=== PATIENT | male | born 1975 ===

== ENCOUNTER 2018-05-10 18:18 | Emergency (ER) | payer BC ==
[2018-05-10 18:18] VITALS: BMI 24.7
[2018-05-10 18:23] VITALS: BP 122/78; PULSE 83; TEMP 97.9; O2SAT 97
--- NOTE | 2018-05-10 18:42 | C.PDOC ---
History Of Present Illness 42 y/o male presents to ED with c/o left ear pain and difficulty hearing for 2 days. Patient states when he touches his ear, pain goes away and denies fever, headache, ear discharge or throat pain. Time Seen by Provider: 05/10/18 18:33 Chief Complaint (Nursing): ENT Problem History Per: Patient History/Exam Limitations: None Onset/Duration Of Symptoms: Days Current Symptoms Are (Timing): Still Present Past Medical History Reviewed: Historical Data, Nursing Documentation, Vital Signs Vital Signs: Last Vital Signs Temp 97.9 F 05/10/18 18:20 Pulse 83 05/10/18 18:20 Resp 20 05/10/18 19:19 BP 122/78 05/10/18 18:20 Pulse Ox 97 05/10/18 19:14 - Medical History PMH: Asthma Surgical History: No Surg Hx Family History: States: No Known Family Hx - Social History Hx Tobacco Use: No Hx Alcohol Use: No Hx Substance Use: No - Immunization History Hx Tetanus Toxoid Vaccination: No Hx Influenza Vaccination: No Hx Pneumococcal Vaccination: No Review Of Systems Constitutional: Negative for: Fever, Chills ENT: Positive for: Ear Pain. Negative for: Ear Discharge Respiratory: Negative for: Cough Skin: Negative for: Rash Physical Exam - Physical Exam Appears: Non-toxic, No Acute Distress Skin: Warm, Dry, No Rash Head: Atraumatic, Normacephalic Eye(s): bilateral: Normal Inspection Ear(s): Left: TM Obscured By Wax, Right: Normal Oral Mucosa: Moist Throat: Normal, No Erythema, No Exudate Neck: Supple Extremity: Bilateral: Atraumatic, Normal Color And Temperature Neurological/Psych: Oriented x3, Normal Speech Gait: Steady ED Course And Treatment O2 Sat by Pulse Oximetry: 97 (RA) Pulse Ox Interpretation: Normal Medical Decision Making Medical Decision Making: Impression: cerumen impaction Plan: Ear lavage Progress: Patient tolerated well. Instructed to follow up with ENT Disposition Counseled Patient/Family Regarding: Diagnosis, Need For Followup - Disposition Referrals: Evgeny Pereira MD [Staff Provider] - Disposition: HOME/ ROUTINE Disposition Time: 19:07 Condition: STABLE Additional Instructions: apply ear drops to affected ear follow up with ENT Prescriptions: Carbamide Peroxide [Debrox] 15 ml AD BID #1 bottle Instructions: Ear Wax Impaction (DC) Forms: [employer] (Nepali) - POA Present On Arrival: None - Clinical Impression Clinical Impression: Cerumen impaction - PA / PUTTY PATCHER / Resident Statement MD/DO has reviewed & agrees with the documentation as recorded. - Scribe Statement The provider has reviewed the documentation as recorded by the Scribe Tahira Sherwood All medical record entries made by the Scribe were at my direction and personally dictated by me. I have reviewed the chart and agree that the record accurately reflects my personal performance of the history, physical exam, medical decision making, and the department course for this patient. I have also personally directed, reviewed, and agree with the discharge instructions and disposition. Procedures - Ear Wax Removal Left Ear Cerumenolytic Used: 5-10 % Sodium Bicarb solution Result: Re-examined: cerumen removed completely TM Examination: TM(s) intact, normal appearance Ear Canal Exam: atraumatic Patient Tolerated Procedure: well Complications: no problems Technique: ear canal irrigated
[2018-05-10 19:20] VITALS: RESP 20
== END 2018-05-10 19:19 | disposition home or self-care (01) ==
LOC: C.ER 18:18
DX: H61.22 Impacted cerumen, left ear (principal)

== ENCOUNTER 2018-12-20 09:08 | Emergency (ER) | payer BC ==
[2018-12-20 09:18] VITALS: BMI 23.1
[2018-12-20 09:20] VITALS: BP 119/76; PULSE 99; RESP 20; TEMP 99.6; O2SAT 96
--- NOTE | 2018-12-20 09:48 | C.PDOC ---
History Of Present Illness 43 year old male with h/o asthma presents to ED with mother for 2-3 days of wheezing and nonproductive cough. Patient uses nebulizer and had a subjective fever yesterday. Patient also complains of "itchy" chest discomfort only when coughing. Patient has no history of intubation and no recent steroid/hospitalizations. Patient denies chills, nausea, and vomiting. 2-3 d wheezing, non prod cough used neb tactile temp yest "itchy" chest discomfort only when coughing no chills, no n/v no h/o intubation, no recent steroid/hospitalizations no other c/o Chief Complaint (Nursing): Cough, Cold, Congestion History Per: Patient History/Exam Limitations: no limitations Onset/Duration Of Symptoms: Days (2-3) Current Symptoms Are (Timing): Still Present Location Of Pain: Other (chest) Associated Symptoms: Fever, Cough, Other. denies: Chills, Sputum, Nausea, Vomiting Past Medical History Reviewed: Historical Data, Nursing Documentation, Vital Signs Vital Signs: Last Vital Signs Temp 99.6 F 12/20/18 09:18 Pulse 99 H 12/20/18 09:18 Resp 20 12/20/18 09:18 BP 119/76 12/20/18 09:18 Pulse Ox 96 12/20/18 09:18 - Medical History PMH: Asthma Surgical History: No Surg Hx Family History: States: Unknown Family Hx - Social History Hx Tobacco Use: No Hx Alcohol Use: No Hx Substance Use: No - Immunization History Hx Tetanus Toxoid Vaccination: No Hx Influenza Vaccination: No Hx Pneumococcal Vaccination: No Review Of Systems Constitutional: Positive for: Fever. Negative for: Chills, Weakness Cardiovascular: Positive for: Chest Pain (itchy chest discomfort) Respiratory: Positive for: Cough, Wheezing. Negative for: Sputum Gastrointestinal: Negative for: Nausea, Vomiting Neurological: Negative for: Weakness, Numbness, Dizziness Physical Exam - Physical Exam Appears: Well, Non-toxic, No Acute Distress Skin: Normal Color, Warm, Dry Head: Atraumatic, Normacephalic Eye(s): bilateral: Normal Inspection, PERRL, EOMI Nose: No Discharge Oral Mucosa: Moist Throat: Normal, No Erythema, No Exudate Neck: Normal ROM, Supple Chest: Symmetrical, No Deformity Cardiovascular: Rhythm Regular, No Murmur Respiratory: No Accessory Muscle Use, No Rales, No Rhonchi, No Wheezing Gastrointestinal/Abdominal: Soft, No Tenderness Extremity: Capillary Refill (<2 seconds) Extremity: Bilateral: Atraumatic, Normal Color And Temperature, Normal ROM Pulses: Left Dorsalis Pedis: Normal, Right Dorsalis Pedis: Normal Neurological/Psych: Oriented x3, Normal Speech, Normal Cognition ED Course And Treatment O2 Sat by Pulse Oximetry: 96 (in RA) Medical Decision Making Medical Decision Making: Impression: 43 year old with complaint of non-productive cough, wheezing, and chest discomfort Plan: Patient prescribes Tessalon Told to f/u with . Disposition Counseled Patient/Family Regarding: Diagnosis, Need For Followup - Disposition Referrals: Hope Andrews MD [Staff Provider] - Disposition: HOME/ ROUTINE Disposition Time: 09:45 Condition: GOOD Prescriptions: Benzonatate [Tessalon Perles] 100 mg PO TID PRN #30 tab PRN Reason: Cough Instructions: Upper Respiratory Infection (ED) Forms: [facility] [employer] (Vietnamese), General Discharge Instructions Print Language: [id number] - POA Present On Arrival: None - Clinical Impression Clinical Impression: Upper respiratory infection - Scribe Statement The provider has reviewed the documentation as recorded by the Scribe (Ros Doss) All medical record entries made by the Scribe were at my direction and personally dictated by me. I have reviewed the chart and agree that the record accurately reflects my personal performance of the history, physical exam, medical decision making, and the department course for this patient. I have also personally directed, reviewed, and agree with the discharge instructions and disposition.
== END 2018-12-20 10:15 | disposition home or self-care (01) ==
LOC: C.ER 09:08
DX: J06.9 Acute upper respiratory infection, unspecified (principal)